=== PATIENT | female | born 2000 | race Caucasian/White ===

== ENCOUNTER 2021-12-05 02:50 | Emergency (ER) | payer OTHER ==
[~2021-12-05] VITALS: Ht 162.6 cm; Wt 59.0 kg
[2021-12-05 02:50] VITALS: BP 108/77
--- NOTE | 2021-12-05 02:50 | NUR ---
PT BIB [facility], PREBOOK. TAKEN TO CHAIR
--- NOTE | 2021-12-05 03:13 | NUR ---
Dr. Flores examining patient.
--- NOTE | 2021-12-05 03:22 | NUR ---
PATIENT BIB [facility]. PATIENT EXAMINED BY DR. OCONNOR. PATIENT MEDICALLY CLEARED AND RELEASED IN CUSTODY IN STABLE CONDITION. ORIGINAL PRE-BOOK FORM GIVEN TO OFFICER ALIA, #[id number].
== END 2021-12-05 03:22 ==
LOC: MED 02:50
DX: Z02.89 Encounter for other administrative examinations (principal); V49.88XA Car occupant (driver) (passenger) injured in other specified transport accidents, initial encounter; Y93.89 Activity, other specified; Y92.89 Other specified places as the place of occurrence of the external cause; Y99.8 Other external cause status
CPT/HCPCS: 99283